=== PATIENT | female | born 1950 | race Two or more races ===

== ENCOUNTER 2020-03-20 23:32 | Inpatient (IN) | payer MEDICARE, OTHER ==
[~2020-03-20] VITALS: Ht 152.4 cm; Wt 59.0 kg
--- NOTE | 2020-03-20 03:47 | NUR ---
MECHANICAL MAINTENANCE NOTES RECEIVED PT IN [place]. NAD NO SOB. AOX3. RESPIRATIONS EVEN AND UNLABORED. CONTINENT OF BOWEL AND URINE. AMBULATES WITH ASSIST. NSR IN TELE MONITOR. R HAND 20G SL. 0300 MEDS GIVEN FROM HOSPITAL STOCK. DUPLICATE ORDERS CANCELLED. ALL SAFETY MEASURES IN PLACE. PT IS ABLE TO MAKE NEEDS KNOWN. WILL CONT TO MONITOR Addendum: 03/21/20 at 0731 by FELICITA DUONG RN ERROR DATE
[2020-03-21] MEDS ORDERED: IV NS 0.9% 500 ML BAG IV ONE
--- NOTE | 2020-03-21 | NUR ---
BIBRA 39 FOR C/O HIGH BP. PER RA PT HAS CHRONIC NAUSEA. TO ER BED2
[2020-03-21 00:08] LABS: BASOPHILS # (AUTO) 0.1 /CMM (0.0-0.2); BASOPHILS % (AUTO) 1.1 % (0.0-2.0); EOSINOPHILS % (AUTO) 2.9 % (0.0-6.0); HEMATOCRIT 35 % (33-45); HEMOGLOBIN 11.5 g/dL (11.5-14.8); LYMPHOCYTES # (AUTO) 1.8 /CMM (0.8-4.8); LYMPHOCYTES % (AUTO) 28.3 % (20.0-44.0); MEAN CORPUSCULAR HGB CONC 33 g/dl (31.0-36.0); MEAN CORPUSCULAR VOLUME 90 fL (82-100); MONOCYTES # (AUTO) 0.6 /CMM (0.1-1.30); MONOCYTES % (AUTO) 8.9 % (2.0-12.0); NEUTROPHILS # (AUTO) 3.8 /CMM (1.8-8.9); NEUTROPHILS % (AUTO) 58.8 % (43.0-81.0); PLATELET COUNT (AUTO) 185 /CMM (150-450); RED BLOOD CELL COUNT(AUTO) 3.82 MIL/uL (4.0-5.2); WHITE BLOOD COUNT (AUTO) 6.5 K/uL (4.3-11.0)
[2020-03-21 00:17] LABS: CALCIUM, SERUM 8.7 mg/dL (8.5-10.1); CARBON DIOXIDE 29 mmol/L (21-32); CHLORIDE 96 mmol/L (98-107); CREATININE 0.9 mg/dL (0.6-1.3); GLUCOSE 162 mg/dL (74-106); POTASSIUM 3.2 mmol/L (3.5-5.1); SODIUM SERUM 132 mmol/L (136-145); UREA NITROGEN, BLOOD 3 mg/dL (7-18)
[2020-03-21 00:30] LABS: ALANINE AMINOTRANSFERASE 22 U/L (12-78); ALKALINE PHOSPHATASE 79 U/L (46-116); ASPARTATE AMINOTRANSFERASE 26 U/L (15-37); B-TYPE NATRIURETIC PEPTIDE 305 PG/ML (0-125); BILIRUBIN,DIRECT 0.2 mg/dL (0.0-0.2); BILIRUBIN,TOTAL 0.5 mg/dL (0.2-1.0); TOTAL PROTEIN, SERUM 6.7 g/dL (6.4-8.2)
[2020-03-21 00:39] LABS: D-DIMER 1.06 mg/L(FEU (0.17-0.50)
--- NOTE | 2020-03-21 00:49 | NUR ---
PT TAKEN TO CT
--- NOTE | 2020-03-21 00:51 | NUR ---
JEANNINE NANCE [phone]
[2020-03-21] MEDS ORDERED: ONDANSETRON HCL/PF 4 MG/2 ML VIAL IV ONE (01:00)
[2020-03-21] MEDS ORDERED: ONDANSETRON HCL/PF 4 MG/2 ML VIAL IVP PRN (03:00)
[2020-03-21] MEDS ORDERED: PIPERACILLIN /TAZOBACTAM 3.375 G in IV D5W 50 ML IV ONE (03:00)
[2020-03-21] MEDS ORDERED: VANCOMYCIN 1 GM in IV D5W 250 ML IV ONE (03:00)
[2020-03-21] MEDS ORDERED: ACETAMINOPHEN 325 MG TABLET PO PRN (03:00)
--- NOTE | 2020-03-21 03:46 | NUR ---
PT TAKEN TO FLOOR VIA ACLS PROTOCOL
--- NOTE | 2020-03-21 03:47 | NUR ---
PULMONARY FUNCTION TECHNOLOGIST NOTES RECEIVED PT IN [place]. NAD NO SOB. AOX3. RESPIRATIONS EVEN AND UNLABORED. CONTINENT OF BOWEL AND URINE. AMBULATES WITH ASSIST. NSR IN TELE MONITOR. R HAND 20G SL. 0300 MEDS GIVEN FROM HOSPITAL STOCK. DUPLICATE ORDERS CANCELLED. ALL SAFETY MEASURES IN PLACE. PT IS ABLE TO MAKE NEEDS KNOWN. WILL CONT TO MONITOR
[2020-03-21 03:51] LABS: C-REACTIVE PROTEIN 1.8 mg/dL (0.0-0.9)
[2020-03-21] MEDS ORDERED: VANCOMYCIN 1 GM VIAL ONE (04:41)
[2020-03-21] MEDS ORDERED: PIPERACILLIN /TAZOBACTAM 3.375 G VIAL IV ONE (04:42)
[2020-03-21] MEDS: IV NS 0.9% 1,000 ML IV SCH ×2 (05:07→22:19)
[2020-03-21] MEDS ORDERED: AZITHROMYCIN 500 MG VIAL ONE (05:23)
[2020-03-21] MEDS: AZITHROMYCIN 500 MG in IV D5W 250 ML IV SCH (05:32)
[2020-03-21 07:00] VITALS: BP 140/83
[2020-03-21 07:01] LABS: BASOPHILS % (AUTO) 0.7 % (0.0-2.0); EOSINOPHILS % (AUTO) 4.1 % (0.0-6.0); HEMATOCRIT 35 % (33-45); HEMOGLOBIN 11.6 g/dL (11.5-14.8); LYMPHOCYTES # (AUTO) 1.7 /CMM (0.8-4.8); MEAN CORPUSCULAR HGB CONC 33 g/dl (31.0-36.0); MEAN CORPUSCULAR VOLUME 90 fL (82-100); MONOCYTES # (AUTO) 0.5 /CMM (0.1-1.30); MONOCYTES % (AUTO) 9.7 % (2.0-12.0); NEUTROPHILS # (AUTO) 2.8 /CMM (1.8-8.9); NEUTROPHILS % (AUTO) 53.5 % (43.0-81.0); PLATELET COUNT (AUTO) 167 /CMM (150-450); RED BLOOD CELL COUNT(AUTO) 3.86 MIL/uL (4.0-5.2); WHITE BLOOD COUNT (AUTO) 5.3 K/uL (4.3-11.0)
--- NOTE | 2020-03-21 07:30 | NUR ---
RN OPENING NOTES RECEIVED PATIENT RESTING IN BED. A/O X4, ON ROOM AIR SATURATING WELL. NO SIGNS OF RESPIRATORY DISTRESS NOTED. SATURATING AT 98% ON RA. IV ON LEFT HAND # 20, INTACT, PATENT AND FLUSHED WELL. ON TELE MONITOR WITH SR NOTED. SAFETY MAINTAINED, CALL LIGHT WITHIN REACH, ALL PATIENT NEEDS MET, WILL CONTINUE TO MONITOR CLOSELY.
[2020-03-21 08:00] VITALS: BP 168/88
[2020-03-21 08:02] LABS: THYROID STIMULATING HORMONE 6.869 uIU/mL (0.358-3.74)
[2020-03-21 08:08] LABS: ALBUMIN 2.6 g/dL (3.4-5.0); BILIRUBIN,TOTAL 0.5 mg/dL (0.2-1.0); CALCIUM, SERUM 8.5 mg/dL (8.5-10.1); CREATININE 0.7 mg/dL (0.6-1.3); MAGNESIUM 1.5 mg/dL (1.8-2.4); PHOSPHORUS 4.2 mg/dL (2.5-4.9)
[2020-03-21] MEDS: ENOXAPARIN SODIUM 40 MG/0.4 ML DISP.SYRIN SQ SCH (08:09)
[2020-03-21 08:17] LABS: POTASSIUM 3.3 mmol/L (3.5-5.1)
[2020-03-21] MEDS: Magnesium 1GM/D5W 100ML PREMIX 100 ML IV SCH ×2 (11:08→12:25)
[2020-03-21] MEDS: POTASSIUM CHLORIDE 20 MEQ TAB.PRT.SR PO SCH ×3 (11:09→13:06)
[2020-03-21] MEDS: VALSARTAN 80 MG TABLET PO SCH (11:09)
[2020-03-21 12:00] VITALS: BP 176/87
[2020-03-21] MEDS ORDERED: TRAZ-252 PO (13:28)
[2020-03-21] MEDS ORDERED: ONDA4TAB5 PO (13:28)
[2020-03-21] MEDS ORDERED: METO25TA4 PO (13:28)
[2020-03-21] MEDS ORDERED: BENA40TA8 PO (13:28)
[2020-03-21] MEDS ORDERED: GLIM2TAB31 PO (13:28)
[2020-03-21] MEDS ORDERED: BLOO-668 IN (13:28)
[2020-03-21] MEDS ORDERED: METF-440 PO (13:28)
[2020-03-21] MEDS ORDERED: HYDR25TA4 PO (13:28)
[2020-03-21] MEDS ORDERED: ONDANSETRON 4 MG TAB.RAPDIS SL PRN (15:00)
[2020-03-21 16:00] VITALS: BP 160/53
[2020-03-21 16:44] LABS: APPEARANCE,URINE CLEAR (CLEAR); BILIRUBIN,URINE NEGATIVE (NEGATIVE); BLOOD, URINE NEGATIVE Ery/uL (NEGATIVE); COLOR,URINE YELLOW (YELLOW); KETONES,URINE NEGATIVE (NEGATIVE); LEUKOCYTE ESTERASE ,URINE NEGATIVE (NEGATIVE); NITRITE, URINE NEGATIVE (NEGATIVE); PH,URINE 7.5 (5.0-8.0); PROTEIN,URINE NEGATIVE (NEGATIVE); UGLUCOSE NEGATIVE (NEGATIVE); UROBILINOGEN,URINE 0.2 EU/dL (0.2)
[2020-03-21] MEDS: METFORMIN 500 MG TABLET PO SCH (17:00)
[2020-03-21] MEDS: METOPROLOL SUCCINATE 25 MG TAB.SR.24H PO SCH (17:00)
--- NOTE | 2020-03-21 19:10 | NUR ---
RN CLOSING NOTES NO ACUTE CHANGES TO PATIENT CONDITION DURING MY SHIFT. ALL PATIENT NEEDS MET, CALL LIGHT WITHIN REACH, ENDORSED TO PM NURSE FOR CONTINUITY OF CARE.
--- NOTE | 2020-03-21 19:30 | NUR ---
NEUROLOGICAL PHYSIOTHERAPIST NOTES RECEIVED PATIENT IN BED AOX4 DENIES ANY PAIN OR DISCOMFORT. BREATHING NORMAL NO SOB NOTED. SKIN WARM AND DRY TOUCH. ON RA SATURATING WELL 97-98%. TELE MONITOR READING SR. LT HAND IV PATENT INTACT FLUID RUNNING WELL. ALL SAFETY MEASURES IN PLACE. CALL LIGHT WITHIN REACH. WILL CONT TO MONITOR FOR SHAYLA.
[2020-03-21 20:00] VITALS: BP 168/73
[2020-03-21] MEDS: TRAZODONE 50 MG TABLET PO SCH (21:10)
[2020-03-22] VITALS: BP 158/68
[2020-03-22 04:00] VITALS: BP 148/81
--- NOTE | 2020-03-22 06:47 | NUR ---
RN NOTES NO S/S OF DISTRESS NOTED. PATIENT DENIES ANY PAIN. BREATHING NORMAL NO SOB NOTED. PATIENT IS NPO AFTER MIDNIGHT. KEPT CLEAN AND COMFORTABLE. ALL SAFETY MEASURES IN PLACE,BED IN LOW AND LOCKED POSITION. CALL LIGHT WITHIN REACH. WILL ENDORSE TO AM NURSE FOR SHAYLA.
[2020-03-22 08:00] VITALS: BP_SYST 117; BP_SYST 172; BP_DIAS 63; BP_DIAS 86
--- NOTE | 2020-03-22 08:00 | NUR ---
AUDRA OPENING RN NOTES RECEIVED PT IN BED SLEEPING .NO S/S OF DISTRESS NOTED. NO SOB NOTED. PATIENT IS NPO AFTER MIDNIGHT. KEPT CLEAN AND COMFORTABLE. ALL SAFETY MEASURES IN PLACE,BED IN LOW AND LOCKED POSITION. CALL LIGHT WITHIN REACH. WILL CONTINUE TO MONITOR
[2020-03-22 08:11] LABS: BASOPHILS % (AUTO) 0.6 % (0.0-2.0); EOSINOPHILS % (AUTO) 3.3 % (0.0-6.0); HEMATOCRIT 34 % (33-45); HEMOGLOBIN 11.5 g/dL (11.5-14.8); LYMPHOCYTES # (AUTO) 1.4 /CMM (0.8-4.8); LYMPHOCYTES % (AUTO) 21.4 % (20.0-44.0); MEAN CORPUSCULAR HGB CONC 33 g/dl (31.0-36.0); MEAN CORPUSCULAR VOLUME 91 fL (82-100); MONOCYTES # (AUTO) 0.6 /CMM (0.1-1.30); MONOCYTES % (AUTO) 8.7 % (2.0-12.0); NEUTROPHILS # (AUTO) 4.3 /CMM (1.8-8.9); PLATELET COUNT (AUTO) 166 /CMM (150-450); RED BLOOD CELL COUNT(AUTO) 3.79 MIL/uL (4.0-5.2); WHITE BLOOD COUNT (AUTO) 6.5 K/uL (4.3-11.0)
[2020-03-22 08:51] LABS: ALANINE AMINOTRANSFERASE 17 U/L (12-78); ALBUMIN 2.4 g/dL (3.4-5.0); ALKALINE PHOSPHATASE 63 U/L (46-116); ASPARTATE AMINOTRANSFERASE 26 U/L (15-37); BILIRUBIN,TOTAL 0.6 mg/dL (0.2-1.0); CALCIUM, SERUM 8.4 mg/dL (8.5-10.1); CARBON DIOXIDE 26 mmol/L (21-32); CHLORIDE 104 mmol/L (98-107); CREATININE 0.5 mg/dL (0.6-1.3); GLUCOSE 83 mg/dL (74-106); MAGNESIUM 1.6 mg/dL (1.8-2.4); POTASSIUM 3.5 mmol/L (3.5-5.1); SODIUM SERUM 137 mmol/L (136-145); TOTAL PROTEIN, SERUM 5.7 g/dL (6.4-8.2); UREA NITROGEN, BLOOD 3 mg/dL (7-18)
[2020-03-22] MEDS: VALSARTAN 80 MG TABLET PO SCH ×2 (09:00→12:16)
[2020-03-22] MEDS: METFORMIN 500 MG TABLET PO SCH ×2 (09:00→12:18)
[2020-03-22] MEDS: GLIMEPIRIDE 1 MG TABLET PO SCH ×2 (09:00→12:14)
[2020-03-22] MEDS: METOPROLOL SUCCINATE 25 MG TAB.SR.24H PO SCH ×2 (09:00→12:17)
[2020-03-22] MEDS: HYDROCHLOROTHIAZIDE 25 MG TABLET PO SCH ×2 (09:00→12:16)
[2020-03-22] MEDS: BENAZEPRIL HCL 20 MG TABLET PO SCH ×2 (09:00→12:17)
--- NOTE | 2020-03-22 09:30 | NUR ---
AUDRA RN NOTES HOLD ON ALL MEDS DUE TO NUCLEAR MEDICINE GASTRIC EMPTYING TEST NEED TO BE ON NPO.
[2020-03-22] MEDS: AZITHROMYCIN 500 MG in IV D5W 250 ML IV SCH (09:32)
[2020-03-22] MEDS: ENOXAPARIN SODIUM 40 MG/0.4 ML DISP.SYRIN SQ SCH (09:33)
[2020-03-22] MEDS: Magnesium 1GM/D5W 100ML PREMIX 100 ML IV SCH ×2 (11:21→11:23)
[2020-03-22 12:00] VITALS: BP 156/69
--- NOTE | 2020-03-22 12:00 | NUR ---
AUDRA RN NOTES PT RETURNED FROM THE PROCEDURE GAVE ALL MEDS THAT WERE DUE ON 9 AM
[2020-03-22] MEDS ORDERED: ALPRAZOLAM 0.5 MG TABLET PO PRN (15:00)
[2020-03-22 16:00] VITALS: BP 158/49
--- NOTE | 2020-03-22 18:53 | NUR ---
RN CLOSING NOTES NO ACUTE CHANGES TO PATIENT CONDITION DURING MY SHIFT. REMAINED ON ISOLATION FOR R/O COVID. RESULTS PENDING. PATIENT SAFETY WAS MAINTAINED, CALL LIGHT WITHIN REACH, ENDORSED TO PM NURSE FOR CONTINUITY OF CARE.
--- NOTE | 2020-03-22 19:30 | NUR ---
MS RN OPENING NOTE RECEIVED PATIENT ON ISOLATION FOR R/O COVID. PATIENT IN BED. A/OX4. TOLERATING ROOM AIR. RESPIRATIONS ARE EVEN AND UNLABORED. NO S/S SOB NOTED. NO C/O PAIN AT THIS TIME. IN NO APPARENT DISTRESS. NO IV ACCESS NOTED. INFORMED PATIENT WILL INSERT ONE. BED IS LOW AND LOCKED, HOB ELEVATED IN SEMI FOWLERS, SIDE RIALS UP X2. CALL LIGHT WITHIN REACH. WILL CONTINUE TO MONITOR.
[2020-03-22 20:00] VITALS: BP 183/59
[2020-03-22] MEDS: IV NS 0.9% 1,000 ML IV SCH (20:07)
[2020-03-22] MEDS ORDERED: IV NS 0.9% 1,000 ML IV PRN (21:04)
--- NOTE | 2020-03-22 21:09 | NUR ---
MS RN NOTE CALLED TO INFORM ON [place] MD DR. ALFONSO THAT PATIENTS BP IS 183/59 HR 82. THERE ARE NO PRN BP MEDICATIONS. ALSO INFORMED HIM THAT HOME MEDS ARE BENAZEPRIL 40MG, METOPROLOL 25MG AND HYDRODIURIL 25MG. TELEPHONE ORDERED CLONIDINE 0.2MG PO TID. ORDER READ BACK NOTED AND CARRIED OUT. WILL CONTINUE TO MONITOR.
[2020-03-22] MEDS: CLONIDINE HCL 0.1 MG TABLET PO SCH (21:44)
[2020-03-22] MEDS: TRAZODONE 50 MG TABLET PO SCH (22:00)
[2020-03-22] MEDS: METOCLOPRAMIDE HCL 10 MG/10 ML UDC PO SCH (23:59)
[2020-03-23 05:00] VITALS: BP 130/52
[2020-03-23] MEDS: METOCLOPRAMIDE HCL 10 MG/10 ML UDC PO SCH ×3 (06:42→16:42)
[2020-03-23 08:00] VITALS: BP 130/76
[2020-03-23] MEDS: AZITHROMYCIN 500 MG in IV D5W 250 ML IV SCH (08:16)
[2020-03-23] MEDS: METFORMIN 500 MG TABLET PO SCH ×2 (08:17→16:34)
[2020-03-23] MEDS: METOPROLOL SUCCINATE 25 MG TAB.SR.24H PO SCH ×2 (08:18→16:43)
[2020-03-23] MEDS: CLONIDINE HCL 0.1 MG TABLET PO SCH (08:19)
[2020-03-23] MEDS: ENOXAPARIN SODIUM 40 MG/0.4 ML DISP.SYRIN SQ SCH (08:21)
[2020-03-23] MEDS ORDERED: NIFEdipine XL 60 MG TAB PO SCH (09:30)
[2020-03-23 12:00] VITALS: BP 119/56
[2020-03-23 13:00] VITALS: BP 119/56
[2020-03-23] MEDS ORDERED: NIFE-34 PO (14:03)
[2020-03-23] MEDS ORDERED: VALS80TA2 PO (14:03)
[2020-03-23] MEDS ORDERED: METO-295 PO (14:03)
[2020-03-23] MEDS ORDERED: DIPH1TAB28 PO (14:03)
[2020-03-23] MEDS ORDERED: GLIM1TAB PO (14:03)
--- NOTE | 2020-03-23 14:10 | NUR ---
called family to notify patient is being discharge. No answer at this time. Patient cannot provide daughter Alma phone number.
[2020-03-23 16:00] VITALS: BP 160/74
--- NOTE | 2020-03-23 16:30 | NUR ---
Try to contact family again ; no answer
[2020-03-23 16:43] VITALS: BP 160/82
--- NOTE | 2020-03-23 18:11 | NUR ---
Alma daughter will vegetable picker patient in 30 minutes. Patient informed and getting ready
--- NOTE | 2020-03-23 18:36 | NUR ---
Patient cleared for d/c to home. Patient awake and alert/oriented x3, Green[place]ic speaking only. Patient on room air tolerating well, VS are stable and within base line . Skin intact. Patient ambulatory with assistance. IV line removed and ID line removed. D/c instructions and teaching provided to patient's daughter Alma; verbalized understanding. D/C instructions sighed by pt's daughter. Patient has no belongings except clothes. Patient safely taken to the car via wheelchair accompanied by [employer].
[2020-03-24] MEDS ORDERED: AZITHROMYCIN 250 MG TABLET PO SCH (09:00)
== END 2020-03-23 18:36 | disposition home or self-care (01) | DRG 304 ==
LOC: ER 23:34 → TELE1 03-21 02:15 → MEDSG1 03-22 20:55 → TELE1 03-23 08:50
PROVIDERS: ADMIT Nurse Practitioner Acute Care; ATTEND Nurse Practitioner Acute Care
DX: I16.0 Hypertensive urgency (principal); J15.9 Unspecified bacterial pneumonia; E87.1 Hypo-osmolality and hyponatremia; I10 Essential (primary) hypertension; E83.42 Hypomagnesemia; E87.6 Hypokalemia; E11.43 Type 2 diabetes mellitus with diabetic autonomic (poly)neuropathy; K31.84 Gastroparesis; E02 Subclinical iodine-deficiency hypothyroidism; D64.9 Anemia, unspecified; E88.09 Other disorders of plasma-protein metabolism, not elsewhere classified; Z79.84 Long term (current) use of oral hypoglycemic drugs; E11.649 Type 2 diabetes mellitus with hypoglycemia without coma
CPT/HCPCS: 36415; 71045-TC; 80048-TC; 80053-TC; 80061-TC; 80076-TC; 81000-TC; 82550-TC; 82728-TC; 83540-TC; 83605-TC; 83615-TC; 83690-TC; 83735-TC; 83880; 84100-TC; 84439-TC; 84443-TC; 84484-TC; 85025-TC; 85378-TC; 85730-TC; 86140-TC; 87040-TC; 87081-TC; 93307-TC; A9541; G0378; J0456; J1650; J2405; J2543; J3370; J3475; J7030; J7040; J7060; J8597; U0003-CS

== ENCOUNTER 2022-05-27 20:34 | Emergency (ER) | payer OTHER ==
[~2022-05-27] VITALS: Ht 152.4 cm; Wt 72.6 kg
[~2022-05-27 20:34] MED LIST: BLOO-668 IN; DIPH1TAB28 PO; GLIM1TAB PO; HYDR25TA4 PO; METF-440 PO; METO-295 PO; METO25TA4 PO; NIFE-34 PO; ONDA4TAB5 PO; TRAZ-252 PO; VALS80TA2 PO
--- NOTE | 2022-05-27 20:44 | NUR ---
BIBRA 881 FOR C/O ABD PAIN X 1 DAY. PT A/OX3. TOLERATING R/A AT 100%. CONNECTED PT TO POX AND MONITOR. SAFETY MEASURES IN PLACE.
[2022-05-27] MEDS ORDERED: MORPHINE SULFATE INJ 4 MG/ML DISP.SYRIN ONE (21:59)
[2022-05-27] MEDS ORDERED: MORPHINE SULFATE INJ 2 MG/ML DISP.SYRIN IV ONE (22:00)
--- NOTE | 2022-05-27 22:05 | NUR ---
MUSIC CRITIC AT PT'S BEDSIDE
--- NOTE | 2022-05-27 22:14 | NUR ---
L AMY #20G S/L BLOOD COLLECTED AND SENT TO LAB
--- NOTE | 2022-05-27 22:16 | NUR ---
URINE SENT TO LAB
[2022-05-27 22:34] LABS: BASOPHILS % (AUTO) 0.3 % (0.0-2.0); EOSINOPHILS % (AUTO) 1.2 % (0.0-6.0); HEMATOCRIT 36 % (33-45); HEMOGLOBIN 12.2 g/dL (11.5-14.8); LYMPHOCYTES # (AUTO) 1.9 K/uL (0.8-4.8); LYMPHOCYTES % (AUTO) 18.2 % (20.0-44.0); MEAN CORPUSCULAR HGB CONC 34 g/dl (31.0-36.0); MEAN CORPUSCULAR VOLUME 87 fL (82-100); MONOCYTES # (AUTO) 1.3 K/uL (0.1-1.30); MONOCYTES % (AUTO) 12.4 % (2.0-12.0); NEUTROPHILS # (AUTO) 7.2 K/uL (1.8-8.9); NEUTROPHILS % (AUTO) 67.9 % (43.0-81.0); PLATELET COUNT (AUTO) 218 K/uL (150-450); WHITE BLOOD COUNT (AUTO) 10.6 K/uL (4.3-11.0)
[2022-05-27 23:07] LABS: CALCIUM, SERUM 8.1 mg/dL (8.5-10.1); CARBON DIOXIDE 24 mmol/L (21-32); CHLORIDE 96 mmol/L (98-107); CREATININE 0.4 mg/dL (0.6-1.3); GLUCOSE 105 mg/dL (74-106); POTASSIUM 3.1 mmol/L (3.5-5.1); SODIUM SERUM 131 mmol/L (136-145); UREA NITROGEN, BLOOD 6 mg/dL (7-18)
[2022-05-27 23:13] LABS: ALANINE AMINOTRANSFERASE 29 U/L (12-78); ALBUMIN 2.9 g/dL (3.4-5.0); ALKALINE PHOSPHATASE 121 U/L (46-116); ASPARTATE AMINOTRANSFERASE 20 U/L (15-37); BILIRUBIN,DIRECT 0.3 mg/dL (0.0-0.2); BILIRUBIN,TOTAL 0.7 mg/dL (0.2-1.0); LIPASE 31 U/L (73-393); TOTAL PROTEIN, SERUM 6.7 g/dL (6.4-8.2)
--- NOTE | 2022-05-27 23:36 | NUR ---
UPDATED [facility] DTR [phone]
--- NOTE | 2022-05-28 01:03 | NUR ---
F/U WITH LAB. PENDING URINE RESULTS.
[2022-05-28 01:08] LABS: BILIRUBIN,URINE NEGATIVE (NEGATIVE); COLOR,URINE YELLOW (YELLOW); LEUKOCYTE ESTERASE ,URINE SMALL (NEGATIVE); NITRITE, URINE NEGATIVE (NEGATIVE); PROTEIN,URINE NEGATIVE (NEGATIVE); UGLUCOSE NEGATIVE (NEGATIVE); UROBILINOGEN,URINE 0.2 EU/dL (0.2)
[2022-05-28] MEDS ORDERED: OXYC-128 PO (01:31)
[2022-05-28 01:46] LABS: BACTERIA,URINE Few /HPF (None Seen); SQUAMOUS EPITHELIAL CELL,UR Few /HPF (None Seen)
--- NOTE | 2022-05-28 01:47 | NUR ---
Awaiting for daughters arrival for D/C . Written and verbal after care instructions given. Patient verbalizes understanding of instruction. IV removed. Catheter intact and site benign. Pressure and 4x4 applied to site. No bleeding noted.
[2022-05-28] MEDS ORDERED: HYDROCODONE/APAP 5/325MG TABLET ONE (01:50)
[2022-05-28 01:57] VITALS: BP 115/52
--- NOTE | 2022-05-28 01:57 | NUR ---
Patient discharged to home in stable condition with daughter. Written and verbal after care instructions given. Patient verbalizes understanding of instruction.
[2022-05-28] MEDS ORDERED: HYDROCODONE/APAP 5/325MG TABLET PO ONE (02:00)
== END 2022-05-28 01:58 | disposition home or self-care (01) ==
LOC: ER 20:36
DX: K46.9 Unspecified abdominal hernia without obstruction or gangrene (principal); I10 Essential (primary) hypertension; E11.9 Type 2 diabetes mellitus without complications; M19.90 Unspecified osteoarthritis, unspecified site; Z79.899 Other long term (current) drug therapy; Z79.84 Long term (current) use of oral hypoglycemic drugs
CPT/HCPCS: 99284; 74176; 96374; 85025; 80048; 87086; 83690; 80076; 81001; 36415; J2270